=== PATIENT | female | born 1935 | race Caucasian/White ===

== ENCOUNTER 2017-06-30 18:30 | Inpatient (IN) | payer MEDICARE ==
[~2017-06-30] VITALS: Ht 167.6 cm; Wt 73.3 kg
[2017-06-30 18:45] VITALS: BP 152/67; PULSE 98; RESP 16; TEMP 98.3; O2SAT 96
--- NOTE | 2017-06-30 19:04 | PD ---
HPI Chief Complaint: Abdominal Pain Time Seen by Provider: 18:55 Travel History International Travel<30 days: No Contact w/Intl Traveler<30days: No Traveled to known affect area: No History of Present Illness HPI This patient complains of abdominal pain. She's had intermittent pains for the last 3 weeks. Pain is diffuse but seems worse in the right lower quadrant. She 's had a total abdominal hysterectomy but is not sure if they took her appendix or not. She denies fever. She's had occasional vomiting and diarrhea. Appetite is decreased. Severity is moderate. No alleviating factors. No exacerbating factors. PFSH Social History Alcohol Use: No Tobacco Use: No Substance Use: No Allergies-Medications (Allergen,Severity, Reaction): Coded Allergies: No Known Allergies (Unverified , 06/30/17) Reported Meds & Prescriptions Reported Meds & Active Scripts Active No Active Prescriptions or Reported Medications Review of Systems General / Constitutional: No: Fever Eyes: No: Visual changes HENT: No: Headaches Cardiovascular: No: Chest Pain or Discomfort Respiratory: No: Shortness of Breath Gastrointestinal: Positive: Nausea, Vomiting, Diarrhea, Abdominal Pain Genitourinary: No: Dysuria Musculoskeletal: No: Pain Skin: No Rash Neurologic: No: Weakness Psychiatric: No: Depression Endocrine: No: Polydipsia Hematologic/Lymphatic: No: Easy Bruising Physical Exam Narrative GENERAL: Well-nourished, well-developed patient in no apparent distress. SKIN: Focused skin assessment reveals no rash and nodules. Skin is Warm and dry. HEAD: Atraumatic. Normocephalic. EYES: Pupils equal and round. No scleral icterus. No injection or drainage. ENT: No nasal bleeding or discharge. Mucous membranes pink and moist. NECK: Trachea midline. No JVD. CARDIOVASCULAR: Regular rate and rhythm. No murmur appreciated. RESPIRATORY: No accessory muscle use. Clear to auscultation. Breath sounds equal bilaterally. GASTROINTESTINAL: Abdomen soft, right lower quadrant is tender without rebound or guarding , nondistended. Hepatic and splenic margins not palpable. MUSCULOSKELETAL: No obvious deformities. No clubbing. No cyanosis. No edema. NEUROLOGICAL: Awake and alert. No obvious cranial nerve deficits. Motor grossly within normal limits. Normal speech. PSYCHIATRIC: Appropriate mood and affect; insight and judgment normal. Data Data Last Documented VS Vital Signs Date Time Temp Pulse Resp B/P (MAP) Pulse Ox O2 Delivery O2 Flow Rate FiO2 06/30/17 20:25 82 16 151/57 (88) 98 Nasal Cannula 06/30/17 18:45 98.3 Orders Orders Complete Blood Count With Diff (06/30/17 19:01) Comprehensive Metabolic Panel (06/30/17 19:01) Lipase (06/30/17 19:01) Prothrombin Time / Inr (Pt) (06/30/17 19:) Act Partial Throm Time (Ptt) (06/30/17 19:) Ct Abd/Pel W Iv Contrast(Rout) (06/30/17 19:01) Iv Access Insert/Monitor (06/30/17 19:01) Ecg Monitoring (06/30/17 19:) Oximetry (06/30/17 19:) Sodium Chloride 0.9% Flush (Ns Flush) (06/30/17 19:15) Urinalysis - C+S If Indicated (06/30/17 19:56) Iohexol 350 Inj (Omnipaque 350 Inj) (06/30/17 20:03) Admit Order (Ed Use Only) (06/30/17 21:38) Labs Laboratory Tests Test 06/30/17 19:15 06/30/17 20:15 White Blood Count 31.9 TH/MM3 Red Blood Count 3.88 MIL/MM3 Hemoglobin 11.3 GM/DL Hematocrit 34.1 % Mean Corpuscular Volume 87.9 FL Mean Corpuscular Hemoglobin 29.2 PG Mean Corpuscular Hemoglobin Concent 33.2 % Red Cell Distribution Width 15.1 % Platelet Count 213 TH/MM3 Mean Platelet Volume 7.3 FL Neutrophils (%) (Auto) 16.7 % Lymphocytes (%) (Auto) 79.8 % Monocytes (%) (Auto) 2.2 % Eosinophils (%) (Auto) 0.3 % Basophils (%) (Auto) 1.0 % Neutrophils # (Auto) 5.3 TH/MM3 Lymphocytes # (Auto) 25.5 TH/MM3 Monocytes # (Auto) 0.7 TH/MM3 Eosinophils # (Auto) 0.1 TH/MM3 Basophils # (Auto) 0.3 TH/MM3 CBC Comment AUTO DIFF Differential Total Cells Counted 100 Neutrophils % (Manual) 17 % Band Neutrophils % 1 % Lymphocytes % 80 % Monocytes % 2 % Neutrophils # (Manual) 5.7 TH/MM3 Differential Comment FINAL DIFF MANUAL Smudge Cells PRESENT Platelet Estimate NORMAL Platelet Morphology Comment NORMAL Tear Drop Cells 1+ Ovalocytes 1+ Prothrombin Time 10.6 SEC Prothromb Time International Ratio 1.0 RATIO Activated Partial Thromboplast Time 25.3 SEC Blood Urea Nitrogen 15 MG/DL Creatinine 0.99 MG/DL Random Glucose 129 MG/DL Total Protein 6.6 GM/DL Albumin 3.4 GM/DL Calcium Level 8.1 MG/DL Alkaline Phosphatase 105 U/L Aspartate Amino Transf (AST/SGOT) 14 U/L Alanine Aminotransferase (ALT/SGPT) 19 U/L Total Bilirubin 0.5 MG/DL Sodium Level 137 MEQ/L Potassium Level 3.9 MEQ/L Chloride Level 102 MEQ/L Carbon Dioxide Level 28.8 MEQ/L Anion Gap 6 MEQ/L Estimat Glomerular Filtration Rate 54 ML/MIN Lipase 125 U/L Urine Color YELLOW Urine Turbidity CLEAR Urine pH 6.0 Urine Specific [place] GREATER THAN 1.035 Urine Protein NEG mg/dL Urine Glucose (UA) NEG mg/dL Urine Ketones NEG mg/dL Urine Occult Blood SMALL Urine Nitrite NEG Urine Bilirubin NEG Urine Leukocyte Esterase NEG Urine WBC 0-2 /hpf Urine Squamous Epithelial Cells 0-5 /hpf Microscopic Urinalysis Comment CULT NOT INDICATED MDM Medical Decision Making Medical Screen Exam Complete: Yes Emergency Medical Condition: Yes Medical Record Reviewed: Yes Differential Diagnosis Colitis, appendicitis, irritable bowel syndrome, ileus Narrative Course I have reviewed the patient's electronic medical record. IV placed CBC shows significant leukocytosis of 31,000 metabolic profile is normal LFT's are normal lipase is normal CT of abdomen and pelvis with IV contrast shows an acute colitis and normal appendix Patient's having significant frequent episodes of watery diarrhea with leukocytosis and acute colitis. Suggest possibility of a C. difficile colitis However we do not have tissue diagnosis Whenever she has a stool we will obtain studies of it This is an 81-year-old with acute colitis having significant pain and has no local physician. She will be admitted. I've called the hospitalist to discuss Diagnosis Primary Impression: Acute colitis Admitting Information Admitting Physician Requests: Admit Scripts No Active Prescriptions or Reported Meds Beltran Sen MD Jun 30, 2017 19:04
[2017-06-30] MEDS ORDERED: SODIUM CHLORIDE 0.9% FLUSH 10 ML FLUSH IV FLUSH PRN ×2 (19:15→22:15)
[2017-06-30 19:33] LABS: AUTOMATED NEUTROPHIL # 5.3 TH/MM3 (1.8-7.7); BASOPHIL # 0.3 TH/MM3 (0-0.2); EOSINOPHIL # 0.1 TH/MM3 (0-0.4); EOSINOPHIL % 0.3 % (0.0-4.0); HEMATOCRIT 34.1 % (35.0-46.0); LYMPH % 79.8 % (9.0-44.0); LYMPHOCYTE # 25.5 TH/MM3 (1.0-4.8); MEAN CELL VOLUME 87.9 FL (80.0-100.0); MEAN CORPUSCULAR HEMOGLOBIN 29.2 PG (27.0-34.0); MEAN CORPUSCULAR HGB CONC 33.2 % (32.0-36.0); MONO % 2.2 % (0.0-8.0); NEUT % 16.7 % (16.0-70.0); PLATELET COUNT 213 TH/MM3 (150-450); RED BLOOD COUNT 3.88 MIL/MM3 (4.00-5.30); RED CELL DISTRIBUTION WIDTH 15.1 % (11.6-17.2); WHITE BLOOD COUNT 31.9 TH/MM3 (4.0-11.0)
[2017-06-30 19:39] LABS: CHLORIDE 102 MEQ/L (98-107); HEMO FLAGS AUTO DIFF; POTASSIUM 3.9 MEQ/L (3.5-5.1); SODIUM (NA) 137 MEQ/L (136-145)
[2017-06-30 19:43] LABS: ANION GAP 6 MEQ/L (5-15); BICARBONATE 28.8 MEQ/L (21.0-32.0); BLOOD UREA NITROGEN 15 MG/DL (7-18)
[2017-06-30 19:44] LABS: APTT (PATIENT) 25.3 SEC (24.3-30.1); PROTHROMBIN TIME - PATIENT 10.6 SEC (9.8-11.6)
[2017-06-30 19:45] VITALS: RESP 16; O2SAT 96
[2017-06-30 19:46] LABS: ALT (GPT) 19 U/L (10-53); AST (GOT) 14 U/L (15-37); GLOMERULAR FILTRATION RATE 54 ML/MIN (>89)
[2017-06-30 19:47] LABS: TOTAL BILIRUBIN ADULT 0.5 MG/DL (0.2-1.0)
[2017-06-30 19:49] LABS: ALKALINE PHOSPHATASE 105 U/L (45-117)
[2017-06-30] MEDS ORDERED: IOHEXOL 350 MG/ML 10 ML VIAL (for RAD DIAG) IVCONTRAST ONE (20:03)
[2017-06-30 20:15] LABS: BANDS 1 % (0-6); NEUTROPHIL # MANUAL DIFF 5.7 TH/MM3 (1.8-7.7); POLYS (SEG NEUTROPHILS) 17 % (16-70); SMUDGE CELLS PRESENT PRESENT; WBC DIFF SAMPLE 100
[2017-06-30 20:16] LABS: OVALOCYTES 1+ (NORMAL); PLATELET ESTIMATE SMEAR NORMAL (NORMAL); PLATELET MORPHOLOGY NORMAL (NORMAL); SCAN/DIFF FINAL DIFF MANUAL; TEARDROP RBCS 1+ (NORMAL)
[2017-06-30 20:23] VITALS: BP 151/57; PULSE 82; RESP 16; O2SAT 98
[2017-06-30 20:25] VITALS: BP 151/57; PULSE 82; RESP 16; O2SAT 98
[2017-06-30 20:32] LABS: BLOOD, URINE SMALL (NEG); GLUCOSE,URINE NEG (NEG); KETONE, URINE NEG (NEG); NITRITE,URINE NEG (NEG)
[2017-06-30 20:53] LABS: SQUAMOUS EPITHELIAL CELL URINE 0-5 /hpf (0-5); URINE COLOR YELLOW (YELLW/STRAW); WBC, URINE 0-2 /hpf (0-5)
[2017-06-30 20:54] LABS: COMMENT (UR) CULT NOT INDICATED; CULTURE IF INDICATED CULT NOT INDICATED
--- NOTE | 2017-06-30 20:55 | RADRPT ---
EXAM DATE/TIME: 06/30/2017 19:57 [facility] COMPARISON: No previous studies available for comparison. INDICATIONS : Severe right lower quadrant pain for 1 day IV CONTRAST: 97 cc Omnipaque 350 (iohexol) IV ORAL CONTRAST: No oral contrast ingested. RADIATION DOSE: 10.92 CTDIvol (mGy) MEDICAL HISTORY : None SURGICAL HISTORY : Hysterectomy. ENCOUNTER: Initial ACUITY: 1 day PAIN SCALE: 10/10 LOCATION: Right lower quadrant TECHNIQUE: Volumetric scanning of the abdomen and pelvis was performed. Using automated exposure control and ad justment of the mA and/or kV according to patient size, radiation dose was kept as low as reasonably achievable to obtain optimal diagnostic quality images. DICOM format image data is available electro nically for review and comparison. FINDINGS: LOWER LUNGS: The visualized lower lungs are clear. LIVER: Homogeneous density without lesion. There is no dilation of the biliary tree. No calcified gallston es. SPLEEN: Normal size without lesion. PANCREAS: Within normal limits. KIDNEYS: Normal in size and shape. There is no mass, stone or hydronephrosis. ADRENAL GLANDS: Within normal limits. VASCULAR: There is no aortic aneurysm. BOWEL/MESENTERY: There is thickening of the proximal ascending colon with surrounding induration in pericolic fat. The re appears to be some minimal thickening of the distal terminal ileum adjacent to the thickened regio n of ascending colon. The tip of the cecum is not thickened. A short appendix appears normal. There i s a mild amount of fluid in the peritoneal cavity in the pelvis and around the liver. ABDOMINAL WALL: Within normal limits. RETROPERITONEUM: There is no lymphadenopathy. BLADDER: No wall thickening or mass. REPRODUCTIVE: The patient appears to be status post hysterectomy. INGUINAL: There is no lymphadenopathy or hernia. MUSCULOSKELETAL: There is degenerative change in the lumbar spine. CONCLUSION: 1. Thickening of the proximal ascending colon with surrounding induration/inflammatory change. This c ould represent area of focal colitis. There is some minimal thickening of the distal terminal ileum a djacent to this region. 2. Mild peritoneal fluid. Chava Acuna MD on June 30, 2017 at 20:48 Board Certified Radiologist. This report was verified electronically.
[2017-06-30 22:09] VITALS: BP 138/51; PULSE 88; RESP 16; O2SAT 97
[2017-06-30] MEDS ORDERED: SODIUM CHLOR 0.9% 1000 ML INJ 1,000 ML IV SCH (22:10)
[2017-06-30] MEDS ORDERED: ONDANSETRON HCL 4 MG/2 ML VIAL IVP PRN (22:15)
[2017-06-30] MEDS ORDERED: MAGNESIUM HYDROXIDE SUSP 30 ML CUP PO PRN (22:15)
[2017-06-30] MEDS ORDERED: ACETAMINOPHEN 325 MG TAB PO PRN (22:15)
[2017-06-30] MEDS ORDERED: ACETAMINOPHEN/HYDROcodone 325 MG/5 MG TAB PO PRN (22:15)
[2017-06-30] MEDS ORDERED: SENNOSIDES 8.6 MG TAB PO PRN (22:15)
[2017-06-30] MEDS ORDERED: BISACODYL 10 MG SUPP RECTAL PRN (22:15)
[2017-06-30] MEDS ORDERED: MORPHINE SULFATE 4 MG/ML INJ IV PUSH PRN (22:15)
[2017-06-30] MEDS ORDERED: LACTULOSE SYRUP 20 GM/30 ML CUP PO PRN (22:15)
[2017-06-30] MEDS ORDERED: CIPROFLOXACIN 400 MG PREMIX 200 ML IV SCH (22:15)
[2017-06-30] MEDS: metroNIDAZOLE 500 MG INJ 100 ML IV SCH (22:33)
[2017-06-30 23:21] VITALS: BP 126/50; PULSE 87; RESP 16; O2SAT 97
[2017-07-01] VITALS: BP 148/63; PULSE 83; RESP 20; TEMP 96; O2SAT 95
[2017-07-01] MEDS: CIPROFLOXACIN 400 MG PREMIX 200 ML IV SCH ×3 (00:13→22:59)
[2017-07-01] MEDS: SODIUM CHLOR 0.9% 1000 ML INJ 1,000 ML IV SCH ×2 (00:13→07:56)
[2017-07-01 04:00] VITALS: BP 137/60; PULSE 86; RESP 18; TEMP 96.9; O2SAT 98
[2017-07-01 05:27] LABS: AUTOMATED NEUTROPHIL # 5.8 TH/MM3 (1.8-7.7); BASOPHIL # 0.5 TH/MM3 (0-0.2); BASOPHIL % 1.5 % (0.0-2.0); EOSINOPHIL # 0.2 TH/MM3 (0-0.4); EOSINOPHIL % 0.5 % (0.0-4.0); HEMATOCRIT 34.6 % (35.0-46.0); LYMPH % 78.2 % (9.0-44.0); LYMPHOCYTE # 28.7 TH/MM3 (1.0-4.8); MEAN CELL VOLUME 86.6 FL (80.0-100.0); MEAN CORPUSCULAR HEMOGLOBIN 28.1 PG (27.0-34.0); MEAN CORPUSCULAR HGB CONC 32.5 % (32.0-36.0); MONO % 3.9 % (0.0-8.0); NEUT % 15.9 % (16.0-70.0); PLATELET COUNT 266 TH/MM3 (150-450); RED CELL DISTRIBUTION WIDTH 14.8 % (11.6-17.2); WHITE BLOOD COUNT 36.6 TH/MM3 (4.0-11.0)
[2017-07-01 05:28] LABS: HEMO FLAGS AUTO DIFF
[2017-07-01] MEDS: metroNIDAZOLE 500 MG INJ 100 ML IV SCH ×3 (05:37→21:50)
[2017-07-01 05:39] LABS: CHLORIDE 103 MEQ/L (98-107); POTASSIUM 4.1 MEQ/L (3.5-5.1); SODIUM (NA) 138 MEQ/L (136-145)
[2017-07-01 05:44] LABS: ANION GAP 6 MEQ/L (5-15); BICARBONATE 28.6 MEQ/L (21.0-32.0); BLOOD UREA NITROGEN 14 MG/DL (7-18)
[2017-07-01 05:47] LABS: ALT (GPT) 19 U/L (10-53); AST (GOT) 13 U/L (15-37); GLOMERULAR FILTRATION RATE 53 ML/MIN (>89)
[2017-07-01 05:48] LABS: TOTAL BILIRUBIN ADULT 0.6 MG/DL (0.2-1.0)
[2017-07-01 05:50] LABS: ALKALINE PHOSPHATASE 111 U/L (45-117)
[2017-07-01 05:52] LABS: BANDS 1 % (0-6); NEUTROPHIL # MANUAL DIFF 4.8 TH/MM3 (1.8-7.7); OVALOCYTES 1+ (NORMAL); PLATELET ESTIMATE SMEAR NORMAL (NORMAL); PLATELET MORPHOLOGY NORMAL (NORMAL); POLYS (SEG NEUTROPHILS) 12 % (16-70); SCAN/DIFF FINAL DIFF MANUAL; WBC DIFF SAMPLE 100
[2017-07-01] MEDS: DOCUSATE SODIUM 50 MG/SENNA 8.6 MG TAB PO SCH ×2 (07:55→20:45)
[2017-07-01] MEDS: SODIUM CHLORIDE 0.9% FLUSH 10 ML FLUSH IV FLUSH SCH ×2 (07:55→20:41)
[2017-07-01 08:00] VITALS: BP 116/58; PULSE 81; RESP 14; TEMP 97; O2SAT 95
[2017-07-01 12:00] VITALS: BP 146/75; PULSE 96; RESP 14; TEMP 96.9; O2SAT 94
--- NOTE | 2017-07-01 13:40 | HHI.HP ---
[facility] Rhona Granados MD Admission Diagnosis acute colitis Diagnoses: Travel History International Travel<30 Days: No Contact w/Intl Traveler <30 Da: No Traveled to Known Affected Are: No History of Present Illness This is a very pleasant 81-year-old female with past medical history of CLL who presented to the ER last night complaining of abdominal pain. Patient states she's been getting abdominal pain once a week for the past 3 weeks. She states it feels slight gaseous distention and she can move feel it moving throughout her abdomen. Does not appear to be associated with meals. When she gets the pain normally she has several loose stools. No hematochezia. No emesis. No fevers or chills. The pain is quite severe but then subsides after about an hour. Patient came to the ER last night at the urging of her daughter and sister. Patient states the pain has resolved today and she feels fine. Patient has never had a colonoscopy because she stated "if it ain't broke don't fix it." She did not do Hemoccults for colon cancer screening either. Patient also has past medical history of chronic lymphocytic leukemia for which she has not needed treatment. Her baseline white blood cell is usually about 24,000 and was last checked 1 year ago. Patient moved to the area about 5 months ago from [place] and has not yet seen her primary care physician here although she has an appointment to establish with him next month. Patient also states she's had a 15 pound weight loss over this past 6 months which she attributes to being more physically active during the move. Patient denies any change in the caliber of her stools. She normally has one formed bowel movement a day. Patient is not on any medications except vitamins. In the emergency department an abdominal CT scan was ordered which revealed thickening of the proximal ascending colon with surrounding induration and inflammatory change which could represent an area of focal colitis, as well as some minimal thickening of the distal terminal ileum adjacent to this region, mild peritoneal fluid. Patient was given IV fluids and started on Cipro and Flagyl IV. Review of Systems Constitutional: DENIES: Fever, Chills Eyes: DENIES: Blurred vision, Diplopia Ears, nose, mouth, throat: DENIES: Throat pain, Odynophagia Respiratory: DENIES: Cough, Shortness of breath Cardiovascular: DENIES: Chest pain, Palpitations Gastrointestinal: COMPLAINS OF: Abdominal pain, Diarrhea, DENIES: Black stools , Bloody stools, Constipation, Nausea, Vomiting Genitourinary: DENIES: Urgency, Dysuria Musculoskeletal: DENIES: Joint Swelling, Neck pain Integumentary: DENIES: Pruritus, Rash Hematologic/lymphatic: DENIES: Lymphadenopathy Neurologic: DENIES: Abnormal gait, Headache, Poor Balance Psychiatric: DENIES: Anxiety, Confusion Past Family Social History Past Medical History CLL Past Surgical History Patient had a hysterectomy in her 40s As a child had surgery on her left lower extremity for osteomyelitis Allergies: Coded Allergies: No Known Allergies (Unverified , 06/30/17) Family History Negative for colon cancer Social History Never smoker. , lives with . Physical Exam Vital Signs Vital Signs Date Time Temp Pulse Resp B/P (MAP) Pulse Ox O2 Delivery O2 Flow Rate FiO2 07/01/17 08:00 97.0 81 14 116/58 (77) 95 07/01/17 04:00 96.9 86 18 137/60 (85) 98 07/01/17 00:00 96.0 83 20 148/63 (91) 95 06/30/17 23:21 87 16 98 06/30/17 23:21 87 16 126/50 (75) 97 Room Air 06/30/17 22:09 88 16 138/51 (80) 97 Room Air 06/30/17 20:25 82 16 151/57 (88) 98 Nasal Cannula 06/30/17 20:23 82 16 151/57 (88) 98 Room Air 06/30/17 19:45 16 96 Room Air 06/30/17 18:45 98.3 98 16 152/67 (95) 96 Physical Exam GENERAL: This is a well-nourished, well-developed pleasant elderly female patient who appears younger than chronologic age, in no apparent distress. SKIN: No rashes, ecchymoses or lesions. Cool and dry. HEAD: Atraumatic. Normocephalic. EYES: Pupils equal round and reactive. Extraocular motions intact. No scleral icterus. No injection or drainage. NECK: Trachea midline. No JVD or lymphadenopathy. Supple, nontender, no meningeal signs. CARDIOVASCULAR: Regular rate and rhythm without murmurs, gallops, or rubs. RESPIRATORY: Clear to auscultation. Breath sounds equal bilaterally. No wheezes , rales, or rhonchi. GASTROINTESTINAL: Bowel sounds slightly hyperactive. Abdomen soft, non-tender, nondistended. No hepato-splenomegaly, or palpable masses. No guarding. MUSCULOSKELETAL: No peripheral edema. She does have a medial scar of her left lower extremity. No joint tenderness, effusion, or edema noted. NEUROLOGICAL: Awake and alert and oriented. Cognitively sharp. Motor and sensory grossly within normal limits. Normal speech. Laboratory Laboratory Tests Test 06/30/17 19:15 06/30/17 20:15 07/01/17 04:28 White Blood Count 31.9 36.6 Red Blood Count 3.88 4.00 Hemoglobin 11.3 11.2 Hematocrit 34.1 34.6 Mean Corpuscular Volume 87.9 86.6 Mean Corpuscular Hemoglobin 29.2 28.1 Mean Corpuscular Hemoglobin Concent 33.2 32.5 Red Cell Distribution Width 15.1 14.8 Platelet Count 213 266 Mean Platelet Volume 7.3 7.4 Neutrophils (%) (Auto) 16.7 15.9 Lymphocytes (%) (Auto) 79.8 78.2 Monocytes (%) (Auto) 2.2 3.9 Eosinophils (%) (Auto) 0.3 0.5 Basophils (%) (Auto) 1.0 1.5 Neutrophils # (Auto) 5.3 5.8 Lymphocytes # (Auto) 25.5 28.7 Monocytes # (Auto) 0.7 1.4 Eosinophils # (Auto) 0.1 0.2 Basophils # (Auto) 0.3 0.5 CBC Comment AUTO DIFF AUTO DIFF Differential Total Cells Counted 100 100 Neutrophils % (Manual) 17 12 Band Neutrophils % 1 1 Lymphocytes % 80 84 Monocytes % 2 3 Neutrophils # (Manual) 5.7 4.8 Differential Comment FINAL DIFF MANUAL FINAL DIFF MANUAL Smudge Cells PRESENT Platelet Estimate NORMAL NORMAL Platelet Morphology Comment NORMAL NORMAL Tear Drop Cells 1+ Ovalocytes 1+ 1+ Prothrombin Time 10.6 Prothromb Time International Ratio 1.0 Activated Partial Thromboplast Time 25.3 Blood Urea Nitrogen 15 14 Creatinine 0.99 1.00 Random Glucose 129 117 Total Protein 6.6 6.8 Albumin 3.4 3.5 Calcium Level 8.1 8.3 Alkaline Phosphatase 105 111 Aspartate Amino Transf (AST/SGOT) 14 13 Alanine Aminotransferase (ALT/SGPT) 19 19 Total Bilirubin 0.5 0.6 Sodium Level 137 138 Potassium Level 3.9 4.1 Chloride Level 102 103 Carbon Dioxide Level 28.8 28.6 Anion Gap 6 6 Estimat Glomerular Filtration Rate 54 53 Lipase 125 Urine Color YELLOW Urine Turbidity CLEAR Urine pH 6.0 Urine Specific [place] GREATER THAN 1.035 Urine Protein NEG Urine Glucose (UA) NEG Urine Ketones NEG Urine Occult Blood SMALL Urine Nitrite NEG Urine Bilirubin NEG Urine Leukocyte Esterase NEG Urine WBC 0-2 Urine Squamous Epithelial Cells 0-5 Microscopic Urinalysis Comment CULT NOT INDICATED Result Diagram: 07/01/1742707/01/17427 Imaging Last Impressions Abdomen/Pelvis CT 06/30/17 1901 Signed Impressions: Service Date/Time: June 19:57 - CONCLUSION: 1. Thickening of the proximal ascending colon with surrounding induration/inflammatory change. This could represent area of focal colitis. There is some minimal thickening of the distal terminal ileum adjacent to this region. 2. Mild peritoneal fluid. Chava Acuna MD Caprini VTE Risk Assessment Caprini VTE Risk Assessment: Mod/High Risk (score >= 2) Caprini Risk Assessment Model Point Value = 1 Point Value = 2 Point Value = 3 Point Value = 5 Age 41-60 Minor surgery BMI > 25 kg/m2 Swollen legs Varicose veins or History of unexplained or recurrent spontaneous Oral contraceptives or hormone replacement Sepsis (< 1 month) Serious lung disease, including pneumonia (< 1 month) Abnormal pulmonary function Acute myocardial infarction Congestive heart failure (< 1 month) History of inflammatory bowel disease Medical patient at bed rest Age 61-74 Arthroscopic surgery Major open surgery (> 45 min) Laparoscopic surgery (> 45 min) Malignancy Confined to bed (> 72 hours) Immobilizing plaster cast Central venous access Age >= 75 History of VTE Family history of VTE Factor V Leiden Prothrombin [id number] Lupus anticoagulant Anticardiolipin antibodies Elevated serum homocysteine Heparin-induced thrombocytopenia Other congenital or acquired thrombophilia Stroke (< 1 month) Elective arthroplasty Hip, pelvis, or leg fracture Acute spinal cord injury (< 1 month) Prophylaxis Regimen Total Risk Factor Score Risk Level Prophylaxis Regimen 0-1 Low Early ambulation 2 Moderate Order ONE of the following: *Sequential Compression Device (SCD) *Heparin 5000 units SQ BID 3-4 Higher Order ONE of the following medications: *Heparin 5000 units SQ TID *Enoxaparin/Lovenox 40 mg SQ daily (WT < 150 kg, CrCl > 30 mL/min) *Enoxaparin/Lovenox 30 mg SQ daily (WT < 150 kg, CrCl > 10-29 mL/min) *Enoxaparin/Lovenox 30 mg SQ BID (WT < 150 kg, CrCl > 30 mL/min) AND/OR *Sequential Compression Device (SCD) 5 or more Highest Order ONE of the following medications: *Heparin 5000 units SQ TID (Preferred with Epidurals) *Enoxaparin/Lovenox 40 mg SQ daily (WT < 150 kg, CrCl > 30 mL/min) *Enoxaparin/Lovenox 30 mg SQ daily (WT < 150 kg, CrCl > 10-29 mL/min) *Enoxaparin/Lovenox 30 mg SQ BID (WT < 150 kg, CrCl > 30 mL/min) AND *Sequential Compression Device (SCD) Assessment and Plan Problem List: (1) CLL (chronic lymphocytic leukemia) ICD Code: C91.10 - Chronic lymphocytic leukemia of B-cell type not having achieved remission (2) Acute colitis ICD Code: K52.9 - Noninfective gastroenteritis and colitis, unspecified Status: Chronic (3) Abdominal pain ICD Code: R10.9 - Unspecified abdominal pain (4) Diarrhea ICD Code: R19.7 - Diarrhea, unspecified Assessment and Plan -Abdominal pain with diarrhea with CT findings suggestive of colitis. Treating his presumptive colitis with Flagyl and Cipro. C. difficile toxin is pending. Patient has never had a colonoscopy. She is agreeable to colonoscopy if recommended per gastroenterology who has been consulted. Will advance diet to full liquid. Abdominal pain has resolved today. -CLL - white blood cell has increased above her baseline of 24,000 however she is asymptomatic. I recommend that she follow-up with hematology as an outpatient. -DVT prophylaxis with SCDs Vilma Coronado MD Jul 01, 2017 13:40
[2017-07-01 16:00] VITALS: BP 129/65; PULSE 81; RESP 12; TEMP 96.8; O2SAT 99
[2017-07-01 18:58] LABS: C. DIFF EPI 027 PRESUMPTIVE NEGATIVE (NEGATIVE)
[2017-07-01 20:00] VITALS: BP 134/58; PULSE 78; RESP 20; TEMP 98.1; O2SAT 94
[2017-07-02] VITALS: BP 117/55; PULSE 78; RESP 20; TEMP 97.1; O2SAT 96
[2017-07-02] MEDS: metroNIDAZOLE 500 MG INJ 100 ML IV SCH ×2 (05:23→13:19)
[2017-07-02 08:00] VITALS: BP 123/60; PULSE 79; RESP 20; TEMP 96.1; O2SAT 94
[2017-07-02] MEDS: DOCUSATE SODIUM 50 MG/SENNA 8.6 MG TAB PO SCH (09:00)
[2017-07-02] MEDS: SODIUM CHLORIDE 0.9% FLUSH 10 ML FLUSH IV FLUSH SCH (09:00)
[2017-07-02] MEDS: CIPROFLOXACIN 400 MG PREMIX 200 ML IV SCH (11:14)
[2017-07-02] MEDS ORDERED: METR1TAB76 PO (14:21)
[2017-07-02] MEDS ORDERED: CIPR500T2 PO (14:21)
--- NOTE | 2017-07-02 14:27 | HHI.PR ---
Subjective Remarks Patient remains without abdominal pain or diarrhea. She is tolerating full liquid diet. Patient would like to go home. She prefers to follow-up with gastroenterology as an outpatient. Objective Vitals Vital Signs Date Time Temp Pulse Resp B/P (MAP) Pulse Ox O2 Delivery O2 Flow Rate FiO2 07/02/17 08:00 96.1 79 20 123/60 (81) 94 07/02/17 00:00 97.1 78 20 117/55 (75) 96 07/01/17 20:00 98.1 78 20 134/58 (83) 94 07/01/17 16:00 96.8 81 12 129/65 (86) 99 I/O 07/01/17 07/01/17 07/01/17 07/02/17 07/02/17 07/02/17 07:00 15:00 23:00 07:00 15:00 23:00 Intake Total 724 ml 720 ml 936 ml 440 ml 1020 ml Balance 724 ml 720 ml 936 ml 440 ml 1020 ml Intake Oral 240 ml 720 ml 836 ml 240 ml 1020 ml IV Total 484 ml 100 ml 200 ml # Voids 3 3 6 3 3 # Bowel Movements 3 1 5 1 1 Result Diagram: 07/01/1742707/01/17427 Objective Remarks GENERAL: Well-nourished, well-developed pleasant elderly female patient who appears generally than her stated age.. SKIN: Warm and dry. HEAD: Normocephalic. EYES: No scleral icterus. No injection or drainage. NECK: Supple, trachea midline. No JVD or lymphadenopathy. CARDIOVASCULAR: Regular rate and rhythm without murmurs, gallops, or rubs. RESPIRATORY: Breath sounds equal bilaterally. No accessory muscle use. GASTROINTESTINAL: Bowel sounds normal. Abdomen soft, non-tender, nondistended. EXTREMITIES: No cyanosis, or edema. NEUROLOGICAL: Awake, alert, and oriented x 3. Non-focal. A/P Problem List: (1) CLL (chronic lymphocytic leukemia) ICD Code: C91.10 - Chronic lymphocytic leukemia of B-cell type not having achieved remission Status: Chronic (2) Acute colitis ICD Code: K52.9 - Noninfective gastroenteritis and colitis, unspecified Status: Acute (3) Abdominal pain ICD Code: R10.9 - Unspecified abdominal pain Status: Resolved (4) Diarrhea ICD Code: R19.7 - Diarrhea, unspecified Status: Resolved Assessment and Plan -Abdominal pain with diarrhea with CT findings suggestive of colitis. Treating presumptive colitis with Flagyl and Cipro. C. difficile toxin is negative. Abdominal pain has resolved. No further diarrhea. Patient has never had a colonoscopy. Patient offered gastroenterology consult however she prefers to follow-up as an outpatient. She would like to go home today. -CLL - white blood cell has increased above her baseline of 24,000 however she is asymptomatic. I recommend that she follow-up with hematology as an outpatient. -DVT prophylaxis with SCDs Discharge home today. Regular diet. Follow-up with PCP in 3 weeks, follow-up with hematology patient provided phone number for local hematology office, follow-up with GI outpatient. Cipro and Flagyl for 7 days prescribed. Vilma Coronado MD Jul 02, 2017 14:27
== END 2017-07-02 14:54 | disposition home or self-care (01) | DRG 392 ==
LOC: PHED 18:30 → PHEDA 21:39 → PH3A 23:26
PROVIDERS: ADMIT Family Medicine; ATTEND Family Medicine
DX: K52.9 Noninfective gastroenteritis and colitis, unspecified (principal); C91.10 Chronic lymphocytic leukemia of B-cell type not having achieved remission
CPT/HCPCS: 74177; 80053; 81001; 83690; 85007; 85027; 85610; 85730; 87493; J0744; J7030; Q9967

== ENCOUNTER → 2017-08-12 | Outpatient (CLI) | payer MEDICARE, OTHER ==
[~2017-08-12] MED LIST: CALC250T PO; CIPR500T2 PO; COCO1000 PO; COQ130CA PO; GLUC500T4 PO; HYDR-3516 PO; IRON18TA PO; MAGN250T11 PO; METR1TAB76 PO; OCUVTAB4 PO; POTA10CA PO; VITA200C3 PO; VITATAB43 PO; ZINC30TA PO
[2017-08-12 13:52] LABS: AUTOMATED NEUTROPHIL # 3.2 TH/MM3 (1.8-7.7); BASOPHIL % 0.2 % (0.0-2.0); EOSINOPHIL # 0.1 TH/MM3 (0-0.4); EOSINOPHIL % 0.7 % (0.0-4.0); HEMOGLOBIN 10.1 GM/DL (11.6-15.3); LYMPH % 80.1 % (9.0-44.0); LYMPHOCYTE # 15.1 TH/MM3 (1.0-4.8); MEAN CORPUSCULAR HEMOGLOBIN 29.9 PG (27.0-34.0); MEAN CORPUSCULAR HGB CONC 33.7 % (32.0-36.0); MEAN PLATELET VOLUME 7.3 FL (7.0-11.0); MONOCYTE # 0.4 TH/MM3 (0-0.9); PLATELET COUNT 189 TH/MM3 (150-450); RED BLOOD COUNT 3.38 MIL/MM3 (4.00-5.30); WHITE BLOOD COUNT 18.9 TH/MM3 (4.0-11.0)
[2017-08-12 13:55] LABS: BACTERIA, URINE RARE /hpf; BILIRUBIN, URINE NEG (NEG); BLOOD, URINE SMALL (NEG); GLUCOSE,URINE NEG (NEG); KETONE, URINE NEG (NEG); NITRITE,URINE NEG (NEG); PH, URINE 5.5 (5.0-8.5); SQUAMOUS EPITHELIAL CELL URINE 1 /hpf (0-5); URINE COLOR YELLOW (YELLW/STRAW); URINE LEUKOCYTE ESTERASE NEG (NEG)
[2017-08-12 14:02] LABS: PROTHROMBIN TIME - PATIENT 10.1 SEC (9.8-11.6)
[2017-08-12 14:14] LABS: ALBUMIN 3.4 GM/DL (3.4-5.0); ALT (GPT) 21 U/L (10-53); AST (GOT) 22 U/L (15-37); BICARBONATE 30.3 MEQ/L (21.0-32.0); BLOOD UREA NITROGEN 19 MG/DL (7-18); CALCIUM 8.4 MG/DL (8.5-10.1); CHLORIDE 105 MEQ/L (98-107); CREATININE 0.93 MG/DL (0.50-1.00); GLOMERULAR FILTRATION RATE 58 ML/MIN (>89); GLUCOSE,FASTING 116 MG/DL (74-99); SODIUM (NA) 141 MEQ/L (136-145)
[2017-08-12 14:16] LABS: ALKALINE PHOSPHATASE 105 U/L (45-117); TOTAL BILIRUBIN ADULT 0.3 MG/DL (0.2-1.0); TOTAL PROTEIN 6.5 GM/DL (6.4-8.2)
--- NOTE | 2017-08-12 14:32 | RADRPT ---
EXAM DATE/TIME: 08/12/2017 13:58 [facility] COMPARISON: No previous studies available for comparison. INDICATIONS : Preoperative chest X-Ray. MEDICAL HISTORY : None. SURGICAL HISTORY : Hysterectomy. ENCOUNTER: Initial ACUITY: 1 day PAIN SCORE: 0/10 LOCATION: Bilateral chest FINDINGS: PA and lateral views of the chest demonstrate the lungs to be symmetrically aerated without evidence of mass, infiltrate or effusion. The cardiomediastinal contours are unremarkable. Osseous structure s are intact. CONCLUSION: No acute disease. Steve Ryan MD on August 12, 2017 at 14:31 Board Certified Radiologist. This report was verified electronically.
[2017-08-12 15:26] LABS: LYMPHOCYTES 88 % (9-44); MONOCYTES 3 % (0-8); NEUTROPHIL # MANUAL DIFF 1.7 TH/MM3 (1.8-7.7); POLYS (SEG NEUTROPHILS) 9 % (16-70); SMUDGE CELLS PRESENT PRESENT
--- NOTE | 2017-08-14 12:20 | EKG ---
Date Performed: 08/12/2017 Time Performed: 13:41:08 PTAGE: 81 years EKG: Sinus rhythm . Normal ECG NO PREVIOUS TRACING DOCTOR: Nikolay Carey Interpretating Date/Time 08/14/2017 12:20:09
== END ==
LOC: CPRE 12:50
PROVIDERS: ATTEND Colon & Rectal Surgery
DX: Z01.810 Encounter for preprocedural cardiovascular examination (principal); Z01.811 Encounter for preprocedural respiratory examination; Z01.812 Encounter for preprocedural laboratory examination; C18.2 Malignant neoplasm of ascending colon
CPT/HCPCS: 36415; 71020; 80053; 81001; 82378; 85007; 85027; 85610; 85730; 93005

== ENCOUNTER 2017-08-17 10:03 | Inpatient (IN) | payer MEDICARE, OTHER ==
[2017-08-17] VITALS (12 sets, daily range): BP systolic 141–156; BP diastolic 64–69; PULSE 74–87; RESP 18–19; TEMP 97.4–98.1; O2SAT 96–99
[~2017-08-17] VITALS: Ht 167.6 cm; Wt 70.5 kg
[~2017-08-17 10:03] MED LIST changes: -CIPR500T2 PO; -HYDR-3516 PO; -METR1TAB76 PO
--- NOTE | 2017-08-17 11:12 | PD.HP.UP ---
H&P Update Note The Pre-Admit History and Physical Examination regarding the above named patient was reviewed (including, but not limited to, vital signs, heart, lungs, co-morbid conditions), and upon re-examination it is noted that: the patient's condition has not significantly changed since the last examination. Isai Dick MD Aug 17, 2017 11:12
[2017-08-17] MEDS ORDERED: METOPROLOL TARTRATE 25 MG TAB PO PRN (11:45)
[2017-08-17] MEDS ORDERED: CHLORHEXIDINE GLUCONATE 2 % 1 PACK (2 CLOTHS) TOPICAL PRN (11:45)
[2017-08-17] MEDS ORDERED: POVIDONE IODINE 5% (ANTISEPSIS KIT) 4 APPLICATIONS EACH NARE PRN (11:45)
[2017-08-17] MEDS ORDERED: INSULIN HUMAN REGULAR 1,000 UNITS/10 ML VIAL SQ PRN (11:45)
[2017-08-17] MEDS ORDERED: ALVIMOPAN 12 MG CAPSULE - On Call PO SCH (11:45)
[2017-08-17] MEDS ORDERED: LACTATED RINGER'S 1000 ML IV PRN (11:45)
[2017-08-17] MEDS ORDERED: ceFAZolin 1,000 MG/NS 100 ML IV SCH ×2 (11:45)
[2017-08-17] MEDS ORDERED: SODIUM CHLORID 0.9% 500 ML IV PRN (11:45)
[2017-08-17] MEDS ORDERED: METRONIDAZOLE 500 MG/100 ML ISONTONIC SOLN IV SCH (11:45)
[2017-08-17] MEDS ORDERED: BUPIVACAINE HCL PF 0.5% 30 ML VIAL ONE ×5 (11:58→12:49)
[2017-08-17] MEDS ORDERED: NEOSTIGMINE 5 MG/5 ML SYRINGE IV PUSH ONE (12:00)
[2017-08-17] MEDS ORDERED: DEXAMETHASONE SOD PHOS 4 MG/ML VIAL IV ONE (12:00)
[2017-08-17] MEDS ORDERED: ONDANSETRON HCL 4 MG/2 ML VIAL IV PUSH ONE (12:00)
[2017-08-17] MEDS ORDERED: PROPOFOL 200 MG/20 ML AMP IV ONE (12:00)
[2017-08-17] MEDS ORDERED: GLYCOPYRROLATE 1 MG/5 ML SYRINGE IV PUSH ONE (12:00)
[2017-08-17] MEDS ORDERED: ROCURONIUM INJ 50 MG/5 ML SYRINGE IV PUSH ONE (12:00)
[2017-08-17] MEDS ORDERED: LIDOCAINE HCL 1% PF 5 ML SYRINGE OTHER ONE (12:00)
[2017-08-17] MEDS ORDERED: DO NOT ADM ANY ANTICOAGULANT DRUGS PRN (14:12)
[2017-08-17] MEDS ORDERED: BUPIVACAINE HCL PF 0.5% 30 ML VIAL NB SCH (14:15)
[2017-08-17] MEDS ORDERED: NALOXONE HCL 0.4 MG/ML AMP IV PUSH PRN (14:15)
[2017-08-17] MEDS ORDERED: POTASSIUM CHLOR 40 MEQ PREMIX 100 ML IV PRN (14:15)
[2017-08-17] MEDS ORDERED: ACETAMINOPHEN/HYDROcodone 325 MG/5 MG TAB PO PRN ×2 (14:15)
[2017-08-17] MEDS ORDERED: ENALAPRILAT 1.25 MG/ML VIAL IV PUSH PRN (14:15)
[2017-08-17] MEDS ORDERED: ONDANSETRON HCL 4 MG/2 ML VIAL IV PUSH PRN (14:15)
[2017-08-17] MEDS ORDERED: ACETAMINOPHEN 325 MG TAB PO PRN (14:15)
[2017-08-17] MEDS ORDERED: BENZOCAINE 6 MG/MENTHOL 10 MG LOZENGE BUCCAL PRN (14:15)
[2017-08-17] MEDS ORDERED: ENALAPRILAT 2.5 MG/2 ML VIAL IV PUSH PRN (14:15)
[2017-08-17] MEDS ORDERED: Post-op Orders (for Pharmacy) XX ONE (14:15)
[2017-08-17] MEDS ORDERED: POTASSIUM CHLOR 20 MEQ PREMIX 100 ML IV PRN (14:15)
[2017-08-17] MEDS ORDERED: MIDAZOLAM HCL 2 MG/2 ML VIAL ONE (14:18)
[2017-08-17] MEDS ORDERED: METOCLOPRAMIDE HCL 10 MG/2 ML VIAL ONE (14:43)
[2017-08-17] MEDS ORDERED: MORPHINE SULFATE 30 MG/30 ML PCA IV SCH (15:15)
[2017-08-17] MEDS: D5-NS + KCL 20 MEQ INJ 1,000 ML IV SCH ×2 (15:30→20:00)
[2017-08-17] MEDS: PCA - TOTAL MG MORPHINE DELIVERED PER SHIFT SCH ×2 (15:44→21:25)
[2017-08-17] MEDS: KETOROLAC TROMETHAMINE 30 MG/ML (IVP) VIAL IVP PRN ×2 (18:42→23:58)
[2017-08-17] MEDS: DEXT 5%-NACL 0.9% 1000 ML INJ 1,000 ML IV SCH (19:45)
[2017-08-17] MEDS: metroNIDAZOLE 500 MG INJ 100 ML IV SCH (20:01)
[2017-08-17] MEDS: METOCLOPRAMIDE HCL 10 MG/2 ML VIAL IVS SCH (20:01)
[2017-08-18] VITALS (20 sets, daily range): BP systolic 136–160; BP diastolic 63–83; PULSE 65–84; RESP 16–19; TEMP 97.3–98.4; O2SAT 94–99
[2017-08-18] MEDS: DEXT 5%-NACL 0.9% 1000 ML INJ 1,000 ML IV SCH ×4 (01:03→23:00)
[2017-08-18] MEDS: metroNIDAZOLE 500 MG INJ 100 ML IV SCH ×2 (03:17→10:56)
[2017-08-18] MEDS: D5-NS + KCL 20 MEQ INJ 1,000 ML IV SCH ×4 (03:18→15:57)
[2017-08-18] MEDS: PCA - TOTAL MG MORPHINE DELIVERED PER SHIFT SCH ×2 (05:26→14:00)
[2017-08-18 07:25] LABS: AUTOMATED NEUTROPHIL # 5.4 TH/MM3 (1.8-7.7); BASOPHIL % 0.1 % (0.0-2.0); HEMATOCRIT 24.7 % (35.0-46.0); HEMOGLOBIN 8.4 GM/DL (11.6-15.3); LYMPH % 74.2 % (9.0-44.0); MEAN CELL VOLUME 87.8 FL (80.0-100.0); MEAN CORPUSCULAR HEMOGLOBIN 29.8 PG (27.0-34.0); MEAN CORPUSCULAR HGB CONC 33.9 % (32.0-36.0); MEAN PLATELET VOLUME 7.2 FL (7.0-11.0); MONO % 2.3 % (0.0-8.0); MONOCYTE # 0.5 TH/MM3 (0-0.9); NEUT % 23.4 % (16.0-70.0); PLATELET COUNT 162 TH/MM3 (150-450); RED BLOOD COUNT 2.81 MIL/MM3 (4.00-5.30); RED CELL DISTRIBUTION WIDTH 15.7 % (11.6-17.2)
[2017-08-18 07:42] LABS: BICARBONATE 26.7 MEQ/L (21.0-32.0); CALCIUM 7.2 MG/DL (8.5-10.1); CREATININE 0.81 MG/DL (0.50-1.00)
[2017-08-18 07:54] LABS: CALCIUM-PROTEIN CORRECTED 8.3 MG/DL (8.5-10.1); TOTAL PROTEIN 5.1 GM/DL (6.4-8.2)
[2017-08-18] MEDS: KETOROLAC TROMETHAMINE 30 MG/ML (IVP) VIAL IVP PRN ×2 (07:56→18:09)
[2017-08-18] MEDS: PANTOPRAZOLE SODIUM 40 MG VIAL IVP SCH (09:00)
[2017-08-18] MEDS: ALVIMOPAN 12 MG CAPSULE - Post-op dosing PO SCH (09:07)
[2017-08-18] MEDS: PANTOPRAZOLE SOD 40 MG DELAYED RELEASE TAB PO SCH (09:08)
[2017-08-18] MEDS: METOCLOPRAMIDE HCL 10 MG/2 ML VIAL IVS SCH (09:08)
[2017-08-18 09:17] LABS: BANDS 1 % (0-6); MONOCYTES 4 % (0-8); POLYS (SEG NEUTROPHILS) 12 % (16-70)
[2017-08-18 09:20] LABS: LYMPHOCYTES 83 % (9-44)
[2017-08-18] MEDS: HEPARIN SODIUM - SQ 10,000 UNITS/ML VIAL SQ SCH (12:13)
[2017-08-18] MEDS ORDERED: ALVIMOPAN 12 MG CAPSULE PO SCH (21:00)
--- NOTE | 2017-08-18 23:08 | HHI.PR ---
Subjective Remarks C/R Surg POD #1 afebrile, VSS UO good Objective - Vital Signs Date Time Temp Pulse Resp B/P (MAP) Pulse Ox O2 Delivery O2 Flow Rate FiO2 08/18/17 20:00 97.4 83 18 160/83 (108) 94 08/18/17 17:54 Room Air 08/18/17 11:42 21 08/18/17 08:00 1.00 Result Diagram: 08/18/17 0625 08/18/17 0625 Objective Remarks PE alert Abd - soft, wound dry, min tympany A/P Assessment and Plan Imp: stable post-op OOB Decr IVF tx to floor Isai Dick MD Aug 18, 2017 23:08
[2017-08-19] VITALS (7 sets, daily range): BP systolic 114–159; BP diastolic 59–70; PULSE 84–96; RESP 16–20; TEMP 96.7–97.5; O2SAT 92–99
[2017-08-19] MEDS: METOCLOPRAMIDE HCL 10 MG/2 ML VIAL IVS SCH ×2 (00:12→09:55)
[2017-08-19] MEDS: HEPARIN SODIUM - SQ 10,000 UNITS/ML VIAL SQ SCH ×3 (00:12→20:02)
[2017-08-19] MEDS: ALVIMOPAN 12 MG CAPSULE - Post-op dosing PO SCH ×3 (00:13→20:02)
[2017-08-19] MEDS: KETOROLAC TROMETHAMINE 30 MG/ML (IVP) VIAL IVP PRN ×4 (00:15→23:50)
[2017-08-19] MEDS: D5-NS + KCL 20 MEQ INJ 1,000 ML IV SCH ×2 (04:47→17:25)
[2017-08-19] MEDS: DEXT 5%-NACL 0.9% 1000 ML INJ 1,000 ML IV SCH ×3 (05:40→20:35)
[2017-08-19 07:38] LABS: AUTOMATED NEUTROPHIL # 4.2 TH/MM3 (1.8-7.7); BASOPHIL % 0.2 % (0.0-2.0); EOSINOPHIL # 0.1 TH/MM3 (0-0.4); EOSINOPHIL % 0.3 % (0.0-4.0); HEMATOCRIT 25.4 % (35.0-46.0); HEMOGLOBIN 8.4 GM/DL (11.6-15.3); LYMPH % 78.3 % (9.0-44.0); LYMPHOCYTE # 16.9 TH/MM3 (1.0-4.8); MEAN CELL VOLUME 87.8 FL (80.0-100.0); MEAN CORPUSCULAR HEMOGLOBIN 29.1 PG (27.0-34.0); MEAN CORPUSCULAR HGB CONC 33.2 % (32.0-36.0); MEAN PLATELET VOLUME 7.1 FL (7.0-11.0); MONO % 1.7 % (0.0-8.0); MONOCYTE # 0.4 TH/MM3 (0-0.9); NEUT % 19.5 % (16.0-70.0); PLATELET COUNT 146 TH/MM3 (150-450); RED BLOOD COUNT 2.89 MIL/MM3 (4.00-5.30); RED CELL DISTRIBUTION WIDTH 15.7 % (11.6-17.2); WHITE BLOOD COUNT 21.6 TH/MM3 (4.0-11.0)
[2017-08-19 08:01] LABS: CALCIUM 7.6 MG/DL (8.5-10.1); CREATININE 0.73 MG/DL (0.50-1.00)
[2017-08-19] MEDS: PANTOPRAZOLE SODIUM 40 MG VIAL IVP SCH (09:00)
[2017-08-19 09:33] LABS: LYMPHOCYTES 79 % (9-44); MONOCYTES 1 % (0-8); NEUTROPHIL # MANUAL DIFF 4.1 TH/MM3 (1.8-7.7); POLYS (SEG NEUTROPHILS) 19 % (16-70)
[2017-08-19 09:34] LABS: SMUDGE CELLS PRESENT PRESENT
[2017-08-19 09:35] LABS: OVALOCYTES 1+ (NORMAL)
[2017-08-19] MEDS: PANTOPRAZOLE SOD 40 MG DELAYED RELEASE TAB PO SCH (09:55)
--- NOTE | 2017-08-19 17:22 | HHI.FF ---
Face to Face Verification Diagnosis: (1) Colon cancer (2) CLL (chronic lymphocytic leukemia) Physical Therapy Order: Evaluate and Treat, Improve ambulation, Strength and gait training Home Health Nursing Order: Medical education Medication education-adverse effect Wound care and dressing changes I have seen patient Rohini Iqbal on 08/19/17. My clinical findings support the need for the requested home health care services because: Ltd mobility - disease progression Deconditioned w/ increased weakness Limited ability to care for self High risk of falls Infection w/ risk of complications I certify that my clinical findings support that this patient is homebound because: Post-op weakness Unsafe to leave home unassisted Isai Dick MD Aug 19, 2017 17:22
[2017-08-19] MEDS ORDERED: METOCLOPRAMIDE HCL 10 MG/2 ML VIAL IVS PRN (17:30)
--- NOTE | 2017-08-19 21:59 | HHI.PR ---
Subjective Remarks C/R Surg POD #2 afebrile, VSS UO good +BM Objective - Vital Signs Date Time Temp Pulse Resp B/P (MAP) Pulse Ox O2 Delivery O2 Flow Rate FiO2 08/19/17 16:00 96.9 93 20 114/59 (77) 98 08/19/17 08:20 Room Air 08/18/17 11:42 21 08/18/17 08:00 1.00 Result Diagram: 08/19/17 0620 08/19/17 0620 Objective Remarks PE alert Abd - soft, wound dry, min tympany On-Q dc'd A/P Assessment and Plan Imp: OOB Decr IVF adv diet Isai Dick MD Aug 19, 2017 21:59
[2017-08-20] VITALS: BP 150/67; PULSE 85; RESP 16; TEMP 96.6; O2SAT 95
[2017-08-20 08:00] VITALS: BP 144/67; PULSE 77; RESP 16; TEMP 96.5; O2SAT 98
[2017-08-20] MEDS: ALVIMOPAN 12 MG CAPSULE - Post-op dosing PO SCH (08:38)
[2017-08-20] MEDS: HEPARIN SODIUM - SQ 10,000 UNITS/ML VIAL SQ SCH (08:39)
[2017-08-20] MEDS: PANTOPRAZOLE SOD 40 MG DELAYED RELEASE TAB PO SCH (08:39)
[2017-08-20] MEDS ORDERED: HYDR-3516 PO (09:27)
--- NOTE | 2017-08-22 10:32 | MP ---
cc: LASHANDA CARRILLO M.D. DATE OF SURGERY 08/17/2017 PREOPERATIVE DIAGNOSIS Carcinoma of the ascending colon. PROCEDURE Exploratory laparotomy with ascending colectomy. POSTOPERATIVE DIAGNOSIS Carcinoma of the ascending colon. SURGEON Dr. Lashanda Carrillo. SAP BOBJ DEVELOPER SURGEON Dr. Mohsen Meadows. DETAILS OF PROCEDURE The patient was placed in the supine position. After adequate general anesthesia her abdomen was prepped with Betadine solution and draped in the usual sterile fashion. With Dr. Meadows's assistance the abdomen was opened through a supraumbilical transverse incision dividing the rectus muscles with electrocautery. Exploration revealed a large palpable tumor in the ascending colon just distal to the ileocecal valve. The proximal bowel was palpated from ligament of Treitz down to ileocecal valve and felt to be normal, except there was some adenopathy palpable within the mesentery. The colon was palpated and felt to be pretty unremarkable. The liver had no palpable masses. The gallbladder was unremarkable and collapsed. The uterus and ovaries had been surgically removed. First the right colon was mobilized medially by dividing along the white line of Toldt. The right ureter was identified and carefully preserved. Dissection then proceeded up the right gutter taking down attachments to the hepatic flexure, entering the lesser sac and taking the gastrocolic omentum off the transverse colon. The bowel was divided in the right transverse colon and the terminal ileum using the MIRTHA stapler and Priscilla clamps respectively. The intervening mesenteric vessels were taken between Kellys, obtaining hemostasis with Vicryl ties. Bowel continuity was then restored by firing the MIRTHA stapler across the antimesenteric ends of the bowel, closing the enterotomy with a TA 60 stapler. The mesenteric defect was closed with a running Vicryl suture and a 3-0 Vicryl crotch suture was placed as well. The abdomen was then irrigated copiously with normal saline. Adequate hemostasis was achieved. The transverse incision was closed anatomically in two layers using #1 PDS suture to reapproximate the respective fascial layers. On-Q catheters were placed into the rectus sheaths on both sides and brought up through subcutaneous tunnels above the transverse incision. The subcu tissues was irrigated copiously and the skin closed with a running subcuticular Vicryl suture. The wound area was washed with normal saline and dried, sterile dressing of Telfa and gauze applied. The patient tolerated the procedure quite well and was brought to the recovery room in stable condition. Sponge and needle counts were correct at the end of the procedure. MD RODDY Mina/VICTORIANO /10:03 AM /10:09 AM
== END 2017-08-20 12:12 | disposition home or self-care (01) | DRG 330 ==
LOC: HSDI 10:54 → HCPC 15:30 → N07B 08-18 17:25
PROVIDERS: ADMIT Colon & Rectal Surgery; ATTEND Colon & Rectal Surgery
PROC: 07BC0ZX Excision of Pelvis Lymphatic, Open Approach, Diagnostic (ICD-10-PCS; 2017-08-17)
PROC: 0WJP0ZZ Inspection of Gastrointestinal Tract, Open Approach (ICD-10-PCS; 2017-08-17)
PROC: 0DTK0ZZ Resection of Ascending Colon, Open Approach (ICD-10-PCS; principal; 2017-08-17 12:17)
DX: C18.2 Malignant neoplasm of ascending colon (principal); C91.10 Chronic lymphocytic leukemia of B-cell type not having achieved remission
CPT/HCPCS: 80048; 83605; 84155; 85007; 85027; 86850; 86900; 86901; 88305; 88307; 88309; 94150; J0690; J1100; J1644; J1885; J2250; J2270; J2405; J2710; J2765; J3010; J3480; J7120